=== PATIENT | male | born 1985 | race Caucasian/White ===

== ENCOUNTER → 2016-07-31 | Outpatient (CLI) | payer MEDICAID ==
[~2016-07-31] MED LIST: BACL20TA PO; DICY10CA3 PO; GADOBUTROL 10 MMOL/10 ML PFS ONE; LEVE100020 PO; LORA1TAB PO; METO25TA35 PO; NAPR500T PO; OMEP10CA4 PO; SERT100T PO; TIZA4CAP2 PO; ZOLP10TA PO
== END | disposition home or self-care (01) ==
LOC: CFH 13:32
PROVIDERS: ATTEND Registered Nurse
DX: G25.9 Extrapyramidal and movement disorder, unspecified (principal); R51 Headache
CPT/HCPCS: 70553; A9585

== ENCOUNTER → 2016-09-29 | Outpatient (CLI) | payer MEDICAID | END | disposition home or self-care (01) | LOC: CFH 12:30 | PROVIDERS: ATTEND Registered Nurse | DX: M54.13 Radiculopathy, cervicothoracic region (principal); G25.89 Other specified extrapyramidal and movement disorders | CPT/HCPCS: 72157; A9585 ==